=== PATIENT | male | born 1995 | race African-American/Black ===

== ENCOUNTER 2018-03-23 05:44 | Emergency (ER) | payer OTHER ==
[~2018-03-23] VITALS: Ht 182.9 cm; Wt 81.7 kg
[~2018-03-23 05:44] MED LIST: AMOXICILLIN 50500 MG PO
[2018-03-23] MEDS ORDERED: XANAX1 MG PO (05:59)
[2018-03-23] MEDS ORDERED: HYDROCODONE-AP1 EAC6 PO (06:42)
[2018-03-23] MEDS ORDERED: CLEOCIN HCL150 MG PO (06:42)
[2018-03-23 07:59] VITALS: BP 132/66
== END 2018-03-23 07:58 | disposition home or self-care (01) ==
LOC: M.ERS 05:44
DX: J03.90 Acute tonsillitis, unspecified (principal); F17.210 Nicotine dependence, cigarettes, uncomplicated

== ENCOUNTER 2018-04-07 14:59 | Emergency (ER) | payer OTHER ==
[~2018-04-07] VITALS: Ht 182.9 cm; Wt 72.6 kg
[~2018-04-07 14:59] MED LIST changes: +CLEOCIN HCL150 MG PO; +HYDROCODONE-AP1 EAC6 PO; +XANAX1 MG PO
[2018-04-07 15:41] LABS: HEMATOCRIT 42.3 % (42.0-52.0); HEMOGLOBIN 13.8 gm/dL (14.0-18.0); MCH 26.7 pg (26.0-34.0); MCHC 32.5 g/dL (28.0-37.0); MCV 82.3 fL (80.0-100.0); MPV 6.8 fl. (7.2-11.1); NUCLEATED RBCS 0 /100WBC; PLATELET COUNT* 331 thou/uL (150-400); RBC 5.14 mil/uL (4.50-6.00); RDW-CV 14.8 % (10.5-14.5); WBC 20.1 thou/uL (4.0-11.0)
[2018-04-07 15:49] LABS: CALCIUM 9.1 mg/dL (8.5-10.1); CREATININE 0.8 mg/dL (0.6-1.3); POTASSIUM 3.7 mmol/L (3.5-5.1)
[2018-04-07 15:54] LABS: ALBUMIN 3.6 g/dL (3.4-5.0); TOTAL BILIRUBIN 0.6 mg/dL (<0.1-1.0); TOTAL PROTEIN 8.1 g/dL (6.4-8.2)
[2018-04-07 16:24] LABS: ABSOLUTE EOSINOPHILS 0.2 thou/uL (0.0-0.7); ABSOLUTE LYMPHOCYTES 1.6 thou/uL (0.8-5.3); ABSOLUTE NEUTROPHILS 17.3 thou/uL (1.6-8.1); ANISOCYTOSIS Occasional; PLATELET ESTIMATE ADEQUATE
[2018-04-07] MEDS ORDERED: ACETAMINOPHEN-1 EAC1 PO (20:25)
[2018-04-07] MEDS ORDERED: MEDROLDOSEPACK PO (20:25)
[2018-04-07] MEDS ORDERED: CLEOCIN HCL150 M1 PO (20:25)
[2018-04-07 20:34] VITALS: BP 112/67
== END 2018-04-07 20:37 | disposition home or self-care (01) ==
LOC: M.ERS 14:59
PROVIDERS: Nurse Practitioner Family
DX: J36 Peritonsillar abscess (principal); F17.210 Nicotine dependence, cigarettes, uncomplicated

== ENCOUNTER 2018-12-31 08:29 | Emergency (ER) | payer OTHER ==
[~2018-12-31] VITALS: Ht 188 cm; Wt 72.6 kg
[~2018-12-31 08:29] MED LIST changes: +ACETAMINOPHEN-1 EAC1 PO; +CLEOCIN HCL150 M1 PO; +MEDROLDOSEPACK PO
[2018-12-31] MEDS ORDERED: AMOXICILLIN 50500 MG PO (08:43)
[2018-12-31] MEDS ORDERED: NORCO 5-325 TA1 EACH PO (08:43)
[2018-12-31 08:59] VITALS: BP 123/75
== END 2018-12-31 08:59 | disposition home or self-care (01) ==
LOC: M.ERS 08:29
DX: K04.7 Periapical abscess without sinus (principal); F17.210 Nicotine dependence, cigarettes, uncomplicated

== ENCOUNTER 2019-05-26 09:36 | Emergency (ER) | payer OTHER ==
[~2019-05-26] VITALS: Ht 185.4 cm; Wt 72.6 kg
[~2019-05-26 09:36] MED LIST changes: +AUGMENTIN 875-1 EACH PO; +NAPROSYN500 MG PO; +NORCO 5-325 TA1 EAC1 PO; +NORCO 5-325 TA1 EACH PO
[2019-05-26 10:39] VITALS: BP 131/77
== END 2019-05-26 10:41 | disposition home or self-care (01) ==
LOC: M.ERS 09:36
DX: J02.9 Acute pharyngitis, unspecified (principal); L53.9 Erythematous condition, unspecified; F17.210 Nicotine dependence, cigarettes, uncomplicated

== ENCOUNTER 2019-11-13 08:35 | Emergency (ER) | payer OTHER ==
[~2019-11-13] VITALS: Ht 185.4 cm; Wt 79.8 kg
[2019-11-13 08:38] VITALS: BP 130/96
[2019-11-13] MEDS ORDERED: NORCO 5-325 TA1 EAC1 PO (08:57)
[2019-11-13] MEDS ORDERED: AMOXICILLIN 50500 MG PO (08:57)
== END 2019-11-13 09:05 | disposition home or self-care (01) ==
LOC: M.ERS 08:35
DX: K02.9 Dental caries, unspecified (principal); F17.210 Nicotine dependence, cigarettes, uncomplicated